=== PATIENT | male | born 1980 | race Caucasian/White ===

== ENCOUNTER 2023-07-31 20:37 | Emergency (ER) | payer SELFPAY | END 2023-07-31 21:33 | disposition home or self-care (01) | LOC: MW.ED 20:37 | DX: B35.0 Tinea barbae and tinea capitis (principal); Z88.0 Allergy status to penicillin; Z88.8 Allergy status to other drugs, medicaments and biological substances; Z79.899 Other long term (current) drug therapy | CPT/HCPCS: 99283 ==

== ENCOUNTER 2023-08-05 23:01 | Emergency (ER) | payer SELFPAY ==
[2023-08-05] MEDS: Acetaminophen/oxyCODONE 325-5 MG Tab PO ONE (23:25)
[2023-08-05] MEDS: Ibuprofen 600 MG Tab PO ONE (23:25)
== END 2023-08-05 23:38 | disposition home or self-care (01) ==
LOC: MW.ED 23:01
DX: B35.0 Tinea barbae and tinea capitis (principal); L03.811 Cellulitis of head [any part, except face]; F17.210 Nicotine dependence, cigarettes, uncomplicated; Z79.899 Other long term (current) drug therapy; Z88.0 Allergy status to penicillin; Z88.1 Allergy status to other antibiotic agents; Z75.8 Other problems related to medical facilities and other health care
CPT/HCPCS: 99283; A9270

== ENCOUNTER 2023-08-07 12:47 | Emergency (ER) | payer SELFPAY ==
[2023-08-07] MEDS: Lidocaine 1% 5 ML VIAL INJECT ONE (14:38)
== END 2023-08-07 14:40 | disposition home or self-care (01) ==
LOC: MW.ED 12:47
DX: L03.012 Cellulitis of left finger (principal); Z88.0 Allergy status to penicillin; Z88.8 Allergy status to other drugs, medicaments and biological substances; Z75.8 Other problems related to medical facilities and other health care
CPT/HCPCS: 10060; 99283; 99283-25